=== PATIENT | male | born 1970 | race Caucasian/White ===

== ENCOUNTER → 2021-11-08 | Outpatient (CLI) | payer MEDICARE, MEDICAID ==
[~2021-11-08] MED LIST: COMBIVENT INH14.7 GM IH; DULERA1 AR1 IH; ENBREL50 MG/ML SC; FORTAMET1000 MG PO; GABAPENTIN300 M1 PO; GLIPIZIDE2.5 MG PO; GLUCOPHAGE1000 MG PO; GLUCOTROL XL2.5 MG PO; HCTZ 25MG25 MG PO; JANUVIA 100MG100 MG PO; LISINOPRIL20 MG PO; NEURONTIN300 MG/CAP PO; OXYCONTIN 80MG80 MG PO; OXYCONTIN80 MG PO; PERCOCET 325 MG1 TAB PO; PRINIVIL20 MG PO; PROVENTIL0.09 MG/A1 IH; RT SPIRIVA18 MCG IH; TOPROL XL 25MG25 MG PO; VITAMIN D2000 I1 PO; ZOCOR 20MG20 MG PO; [UNRECOGNIZED DRUG - OTHER] NS
== END ==
LOC: COL.RAD 14:00
DX: R20.2 Paresthesia of skin (principal); R53.1 Weakness; M25.50 Pain in unspecified joint